=== PATIENT | male | born 1990 | race African-American/Black ===

== ENCOUNTER 2020-11-30 20:55 | Emergency (ER) | payer OTHER ==
[2020-11-30] MEDS ORDERED: ALBUTEROL INHALER 90MCG/INH IH ONE ×2 (21:20→21:57)
[2020-11-30] MEDS ORDERED: METHYLPREDNISOLONE SOD SUCC 125MG/2ML VIAL ONE (21:20)
== END 2020-11-30 23:17 | disposition home or self-care (01) ==
LOC: EDH 20:55
DX: J45.20 Mild intermittent asthma, uncomplicated (principal); Z20.822 Contact with and (suspected) exposure to COVID-19; Z72.0 Tobacco use
CPT/HCPCS: 71045; 87426; 96374; 99284; J2930; U0003

== ENCOUNTER 2020-12-08 10:02 | Emergency (ER) | payer OTHER ==
[2020-12-08 10:45] LABS: APPEARANCE,URINE Clear (CLEAR); BILIRUBIN,URINE Negative (NEGATIVE); COLOR,URINE Yellow (YELLOW); GLUCOSE, URINE (UA) Negative (NEGATIVE); KETONES,URINE Negative (NEGATIVE); LEUKOCYTE ESTERASE ,URINE Moderate (NEGATIVE); NITRATE,URINE Negative (NEGATIVE); OCCULT BLOOD,URINE Negative (NEGATIVE); PROTEIN,URINE Negative (NEGATIVE)
[2020-12-08 11:06] LABS: BACTERIA,URINE Few /HPF (None Seen); RBC,URINE None Seen /HPF (0-1); SQUAMOUS EPITHELIAL CELL,UR 0-2 /HPF (0-2); WBC,URINE 51-100 /HPF (0-1)
[2020-12-08] MEDS ORDERED: CEFTRIAXONE SODIUM 1 GM ONE (11:54)
[2020-12-08] MEDS ORDERED: LIDOCAINE HCL-MPF 1% 2ML VIAL ONE (11:54)
[2020-12-08] MEDS ORDERED: AZITHROMYCIN 250 MG TABLET PO ONE ×3 (11:55→12:16)
== END 2020-12-08 12:23 | disposition home or self-care (01) ==
LOC: EDH 10:02
DX: N34.2 Other urethritis (principal); Z72.0 Tobacco use
CPT/HCPCS: 81001; 87088; 87486; 87797; 96372; 99283; J0696; J3490